=== PATIENT | female | born 1995 ===

== ENCOUNTER 2017-12-07 22:57 | Emergency (ER) | payer OTHER ==
[2017-12-07] MEDS ORDERED: HYDROCODONE/APAP 7.5/325MG TABLET PO ONE (23:03)
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
--- NOTE | 2017-12-09 07:33 | RADIOLOGY REPORT ---
EXAM: RIGHT LOWER EXTREMITY, TWO VIEWS HISTORY: LEG SWELLING. TECHNIQUE: AP and lateral views of the right lower extremity were performed. FINDINGS: No evidence of fracture or dislocation. No lytic or blastic lesion. IMPRESSION: NEGATIVE RIGHT LOWER EXTREMITY EXAMINATION. JOB NUMBER: [id number] MTDD
== END 2017-12-07 23:50 | disposition home or self-care (01) ==
LOC: ER 22:57
DX: M79.89 Other specified soft tissue disorders (principal); M79.661 Pain in right lower leg
CPT/HCPCS: 99283